=== PATIENT | male | born 1985 | race Caucasian/White ===

== ENCOUNTER 2018-05-26 07:42 | Day surgery (SDC) | payer BC ==
[~2018-05-26 07:42] MED LIST: Lactated Ringers 1,000 ML IV SCH; Lidocaine 1%/Sod Bicarbonate in NS 8.4% 1 ML Syringe IDERM PRN; Sodium Chloride 0.9% 10 ML Syringe FLUSH PRN
[2018-05-26] MEDS ORDERED: Lactated Ringers 1,000 ML ONE (07:43)
[2018-05-26] MEDS ORDERED: Ketorolac 30 MG/ML SDV ONE (07:43)
[2018-05-26] MEDS ORDERED: Ondansetron 4 MG/2 ML SDV ONE (07:43)
[2018-05-26] MEDS ORDERED: Lidocaine 1% 4 ML ONE (07:43)
[2018-05-26] MEDS ORDERED: ceFAZolin 1 GM Vial ONE (07:43)
[2018-05-26] MEDS ORDERED: Midazolam 1 MG/ML 2 ML SDV ONE (07:44)
[2018-05-26] MEDS ORDERED: HYDROmorphone 0.5 MG/0.5 ML Syringe ONE (07:44)
[2018-05-26] MEDS ORDERED: Propofol 200 MG/20 ML SDV ONE (07:44)
[2018-05-26] MEDS ORDERED: fentaNYL 250 MCG/5 ML SDV ONE (07:45)
--- NOTE | 2018-05-26 07:58 | PCM.PREANE ---
Preanesthetic Assessment - Anesthesia/Transfusion/Family Hx Anesthesia History: No Prior Anesthesia Family History of Anesthesia Reaction: No Transfusion History: No Prior Transfusion(s) Intubation History: Unknown - Review of Systems General: No Symptoms Pulmonary: No Symptoms Cardiovascular: No Symptoms (history of HTN) Gastrointestinal: No Symptoms (ETOH: 2-3 per week.), Diarrhea Neurological: No Symptoms Other: Reports: None (History of polycythemia), Diabetes (am blood eoniv=596 @ 0800) - Physical Assessment NPO Status Date: 05/25/18 NPO Status Time: 22:30 Pulse: 87 O2 Sat by Pulse Oximetry: 98 Respiratory Rate: 18 Blood Pressure: 160/86 Temperature: 36.2 C Height: 1.91 m Weight: 118 kg ASA Class: 2 Mental Status: Alert & Oriented x3 Airway Class: Mallampati = 2 Dentition: Reports: Normal Dentition, Caries Thyro-Mental Finger Breadths: 3 Mouth Opening Finger Breadths: 3 ROM/Head Extension: Full Lungs: Clear to Auscultation, Normal Respiratory Effort Cardiovascular: Regular Rate, Regular Rhythm, No Murmurs - Lab Values: Above labs reviewed and noted and within acceptable ranges to proceed with scheduled procedure. - Allergies Allergies/Adverse Reactions: Allergies Allergy/AdvReac Type Severity Reaction Status Date / Time No Known Allergies Allergy Verified 05/25/18 14:38 - Anesthesia Plan Pre-Op Medication Ordered: None - Acknowledgements Anesthesia Type Planned: General Anesthesia (LMA general anesthetic with left adductor canal block if warranted for post operative pain control.) Pt an Appropriate Candidate for the Planned Anesthesia: Yes Alternatives and Risks of Anesthesia Discussed w Pt/Guardian: Yes Pt/Guardian Understands and Agrees with Anesthesia Plan: Yes PreAnesthesia Questionnaire HEENT History: Reports: Impaired Vision, Other (See Below) Other HEENT History: wears glasses Cardiovascular History: Reports: Hypertension Respiratory History: Reports: None Gastrointestinal History: Reports: None Genitourinary History: Reports: None 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 Musculoskeletal History: Reports: Other (See Below) Other Musculoskeletal History: left knee meniscus tear Neurological History: Reports: None Psychiatric History: Reports: None Endocrine/Metabolic History: Reports: Diabetes, Type II Hematologic History: Reports: Polycythemia Immunologic History: Reports: None Oncologic (Cancer) History: Reports: None Dermatologic History: Reports: None - Past Surgical History Head Surgeries/Procedures: Reports: None Cardiovascular Surgical History: Reports: None Respiratory Surgical History: Reports: None GI Surgical History: Reports: None Female Surgical History: Reports: None Male Surgical History: Reports: None Endocrine Surgical History: Reports: None Neurological Surgical History: Reports: None Musculoskeletal Surgical History: Reports: None Oncologic Surgical History: Reports: None Dermatological Surgical History: Reports: None - SUBSTANCE USE Smoking Status *Q: Never Smoker Tobacco Use Within Last Twelve Months: Snuff/Dip Recreational Drug Use History: No - HOME MEDS Home Medications: Home Meds Aspirin 81 mg PO DAILY 05/25/18 [History] Canagliflozin [Invokana] 300 mg PO DAILY 05/25/18 [History] Lisinopril 2.5 mg PO DAILY 05/25/18 [History] Sildenafil [Revatio] 20 mg PO ASDIRECTED PRN 05/25/18 [History] metFORMIN HCl [Metformin HCl] 1,000 mg PO BID 05/25/18 [History] - CURRENT (IN HOUSE) MEDS Current Meds: Current Medications Epinephrine HCl (Adrenalin) 3 mg IV ONETIME ONE Stop: 05/26/18 09:01 Lactated Ringer's (Ringers, Lactated) 1,000 mls @ 125 mls/hr IV ASDIRECTED BIJU Stop: 05/26/18 23:00 Lidocaine/Sodium Bicarbonate (Buffered Lidocaine 1% In Ns 8.4%) 0.25 ml IDERM ONETIME PRN PRN Reason: Prior to IV Start Stop: 05/26/18 18:00 Sodium Chloride (Saline Flush) 10 ml FLUSH ASDIRECTED PRN PRN Reason: Keep Vein Open Stop: 05/26/18 18:00 Discontinued Medications Cefazolin Sodium (Ancef) Confirm Administered Dose 3 gm .ROUTE .STK-MED ONE Stop: 05/26/18 07:44 Fentanyl (Sublimaze) Confirm Administered Dose 250 mcg .ROUTE .STK-MED ONE Stop: 05/26/18 07:46 Hydromorphone HCl (Dilaudid) Confirm Administered Dose 0.5 mg .ROUTE .STK-MED ONE Stop: 05/26/18 07:45 Lidocaine HCl (Xylocaine-Mpf 1%) Confirm Administered Dose 4 mls @ as directed .ROUTE .STK-MED ONE Stop: 05/26/18 07:44 Lactated Ringer's (Ringers, Lactated) Confirm Administered Dose 1,000 mls @ as directed .ROUTE .STK-MED ONE Stop: 05/26/18 07:44 Ketorolac Tromethamine (Toradol) Confirm Administered Dose 30 mg .ROUTE .STK- MED ONE Stop: 05/26/18 07:44 Midazolam HCl (Versed 1 Mg/Ml) Confirm Administered Dose 2 mg .ROUTE .STK-MED ONE Stop: 05/26/18 07:45 Ondansetron HCl (Zofran) Confirm Administered Dose 4 mg .ROUTE .STK-MED ONE Stop: 05/26/18 07:44 Propofol (Diprivan 20 Ml) Confirm Administered Dose 400 mg .ROUTE .STK-MED ONE Stop: 05/26/18 07:45
[2018-05-26] MEDS ORDERED: Bupivacaine 0.25% 30 ML SDV ONE (08:03)
[2018-05-26] MEDS ORDERED: Ondansetron 4 MG/2 ML SDV IVPUSH PRN (08:55)
[2018-05-26] MEDS ORDERED: ePHEDrine 50 MG/ML SDV IVPUSH PRN (08:55)
[2018-05-26] MEDS ORDERED: fentaNYL 100 MCG/2 ML SDV IVPUSH PRN (08:55)
[2018-05-26] MEDS ORDERED: diphenhydrAMINE 50 MG/ML SDV IVPUSH PRN (08:55)
[2018-05-26] MEDS ORDERED: HYDROmorphone 0.5 MG/0.5 ML Syringe IVPUSH PRN (08:56)
[2018-05-26] MEDS ORDERED: Phenylephrine 1 MG in Sodium Chloride 0.9% 10 ML IV SCH (09:00)
[2018-05-26] MEDS ORDERED: EPINEPHrine 1 MG/ML 30 ML MDV IV ONE (09:00)
--- NOTE | 2018-05-26 09:48 | PCM.POSTAN ---
POST ANESTHESIA ASSESSMENT - MENTAL STATUS Mental Status: Alert - VITAL SIGNS Pulse Rate: 96 SaO2: 97 (2LPM nasal cannula) Resp Rate: 18 Blood Pressure: 151/95 Temperature: 36.8 C - RESPIRATORY Respiratory Status: Respiratory Rate WNL, Airway Patent, O2 Saturation Stable, Supplemental Oxygen - CARDIOVASCULAR CV Status: Pulse Rate WNL, Blood Pressure Stable - GASTROINTESTINAL GI Status: No Symptoms - POST OP HYDRATION Hydration Status: Adequate & Stable
--- NOTE | 2018-05-26 10:22 | PCM48HPAN ---
Post Anesthesia Note - EVALUATION WITHIN 48HRS OF ANESTHETIC Vital Signs in Normal Range: Yes Patient Participated in Evaluation: Yes Respiratory Function Stable: Yes Airway Patent: Yes Cardiovascular Function Stable: Yes Hydration Status Stable: Yes Pain Control Satisfactory: Yes Nausea and Vomiting Control Satisfactory: Yes Mental Status Recovered: Yes
--- NOTE | 2018-06-03 08:09 | PCM.OPNOTE ---
- General Post-Op/Procedure Note Date of Surgery/Procedure: 05/26/18 Operative Procedure(s): left knee video arthroscopy with partial medial meniscectomy and plica resection Pre Op Diagnosis: left knee medial meniscus tear Post-Op Diagnosis: same with ACL tear Anesthesia Technique: General LMA, Local Primary Surgeon: Chirag Chan Anesthesia Provider: Tatiana Lott Commodity Broker: Nelda Howard in mLs: 5 Complications: None Condition: Good
--- NOTE | 2018-06-03 08:37 | OR ---
DATE OF OPERATION: 05/26/2018 SURGEON: Chirag Chan MD OPERATION PERFORMED: Left knee video arthroscopy with partial medial meniscectomy and plica resection. PREOPERATIVE DIAGNOSIS: Left knee medial meniscus tear. POSTOPERATIVE DIAGNOSIS: Left knee medial meniscus tear with ACL tear. ANESTHESIA: General LMA with local. ANESTHESIA PROVIDER: Tatiana Lott CRNA. CUPBOARD BUILDER: Nelda Howard PA-C. ESTIMATED BLOOD LOSS: 5 mL. COMPLICATIONS: None. CONDITION: Stable. DESCRIPTION OF PROCEDURE: The patient was identified in the preop holding area. Proper site was marked and identified by the surgeon. The patient was taken to the operating theater, where after adequate anesthesia, the patient's right lower extremity was placed in a well leg barron. The left lower extremity then had a nonsterile tourniquet applied and was placed in a C-clamp barron. Foot of bed was then lowered. Left lower extremity was then sterilely prepped and draped in the usual sterile fashion. OR time-out was performed. The patient received 2 g IV Ancef. At this time, tourniquet was insufflated to 250 mmHg. Standard anterior lateral portal incision was made. The scope trocar was introduced. The patient was noted to have a significant plica on the medial side. 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 There were no loose foreign bodies in the mediolateral gutter. Attention was turned to the medial compartment. At this time, with the use of a spinal needle, anterior medial portal was created and a probe was introduced. There was noted to be a small tear of the posterior horn of the medial meniscus, but that was more of a radial bird beak type tear with an unstable flap, but it was a very small portion. At this time, partial medial meniscectomy was performed back to a stable rim, and a very small portion of the medial meniscus was resected less than a tenth of it that was unstable. At this time, there was no significant chondromalacia. Attention was turned to the notch. The patient was noted to have an ACL tear noted in the notch. The PCL was intact. Attention was turned to the lateral compartment. There were no signs of chondromalacia and no meniscus tear. At this time, a plica resection was done, as well as a small amount of fat pad resection making sure to keep the ligamentum intact. At this time, excess saline was drained from the knee. A 3-0 nylon suture was used for closure of the skin and the patient had sterile soft dressing applied and was sent to PACU in stable condition. MMJANEY /[id number]
== END 2018-05-26 11:35 | disposition home or self-care (01) ==
LOC: JD.SDS 07:42
PROVIDERS: ATTEND Orthopaedic Surgery
DX: M23.222 Derangement of posterior horn of medial meniscus due to old tear or injury, left knee (principal); M22.42 Chondromalacia patellae, left knee; M67.52 Plica syndrome, left knee; E11.9 Type 2 diabetes mellitus without complications; I10 Essential (primary) hypertension; F17.220 Nicotine dependence, chewing tobacco, uncomplicated; Z79.84 Long term (current) use of oral hypoglycemic drugs; Z79.899 Other long term (current) drug therapy
CPT/HCPCS: 29881; 82962; J0171; J0690; J1170; J1885; J2250; J2405; J2704; J3010; J3490; J7120; 01400; J2001